=== PATIENT | male | born 1945 | race Caucasian/White ===

== ENCOUNTER 2017-06-09 20:43 | Emergency (ER) | payer OTHER ==
[~2017-06-09] VITALS: Ht 175.3 cm; Wt 96.8 kg
[~2017-06-09 20:43] MED LIST: ASPI81TA82 PO; ATOR-26 PO; HYDR25TA4 PO
[2017-06-09 20:52] VITALS: BP 170/104; PULSE 93; TEMP 37.1; O2SAT 95; Ht 175.3 cm; Wt 96.8 kg
--- NOTE | 2017-06-09 22:11 | EMERGENCY ROOM VISIT NOTE ---
History First contact with patient: 21:36 Chief Complaint: EYE ASSESSMENT Stated Complaint: SEEING WHITE FLASHES IN RT EYE History of Present Illness The patient is a 71 year old male who presents to the Emergency Room with complaints of floaters and flashes in the right eye. The patient states that a few hours ago, he was watching football when he coughed and developed vertical white flashes in the right eye. He states that the flashes were located in the peripheral vision. He states that these resolved, and he then developed floaters in the right eye. He states these were initially more pronounced in the peripheral vision, but are now intermittent and scattered throughout his vision. 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 He does not regularly see an hyperion administrator or retail services professional. He denies any trauma to the eye. He denies any eye pain or irritation. Review of Systems A complete 10 point review of systems was reviewed with the patient with pertinent positives and negatives as per history of present illness. All else were negative. Past Medical/Surgical History Bladder cancer Social History Smoking Status: Former Smoker Smokeless Tobacco Use: Yes Alcohol Use: occasionally Marital Status: Housing Status: lives with family Occupation Status: retired Current/Historical Medications Scheduled Aspirin (Aspirin), 81 MG PO DAILY Atorvastatin (Lipitor), 40 MG PO DAILY Hydrochlorothiazide (Hctz), 12.5 MG PO DAILY Physical Exam Vital Signs Date Time Temp Pulse Resp B/P (MAP) Pulse Ox O2 Delivery O2 Flow Rate FiO2 06/09/17 20:52 37.1 93 20 170/104 95 Room Air Right Eye Acuity: 20/25 Left Eye Acuity: 0 Physical Exam VITALS: Vitals are noted on the nurse's note and reviewed by myself. Vital signs stable. GENERAL: This is a 71-year-old male, in no acute distress, nondiaphoretic, well- developed well-nourished. EYES: Visual acuity as documented above. PERRLA, EOMs intact. Funduscopic exam of the right eye reveals no hemorrhages or papilledema. No conjunctival injection. Normal peripheral vision. HEART: Regular rate and rhythm without murmurs gallops or rubs. LUNGS: Clear to auscultation bilaterally without wheezes, rales or rhonchi. NEURO: Patient was alert and oriented to person place and time. Medical Decision & Procedures Medical Decision Differential diagnosis includes retinal attachment, vitreous detachment, central retinal artery occlusion, CVA, TIA, among others. The patient was evaluated as above. He has developed new onset of flashes and floaters in the right eye this evening. This is concerning for vitreous detachment or retinal detachment. I spoke with Dr. Padilla on the phone, who recommended that the patient call first thing in the morning to schedule a follow-up exam tomorrow. The patient was informed of this. He was advised to return here for any vision loss or other new/concerning symptoms. He verbalized his understanding of my assessment and treatment plan and was discharged home in good condition. Medication Reconcilliation Current Medication List: was personally reviewed by me Blood Pressure Screening Patient's blood pressure: Elevated blood pressure Blood pressure disposition: Elevated BP felt to be situational Impression Primary Impression: Vitreous floaters of right eye Departure Information Dispostion Home / Self-Care Condition GOOD Referrals No Doctor, Assigned (PCP) Tobias Padilla M.D. Patient Instructions My [facility] Additional Instructions Call Dr. Padilla's office tomorrow after 8 am to schedule an appointment tomorrow. Return to the emergency department for loss of vision, eye pain, or any other new/concerning symptoms.
== END 2017-06-09 22:23 | disposition home or self-care (01) ==
LOC: C.EDB 20:45 → C.EDD 22:23
DX: H43.391 Other vitreous opacities, right eye (principal); Z85.51 Personal history of malignant neoplasm of bladder; Z87.891 Personal history of nicotine dependence; Z79.82 Long term (current) use of aspirin; Z79.899 Other long term (current) drug therapy